=== PATIENT | female | born 1975 | race Caucasian/White ===

== ENCOUNTER → 2016-12-11 | Outpatient (CLI) | payer BC | LOC: MC.RAD 08:00 | DX: Z12.31 Encounter for screening mammogram for malignant neoplasm of breast (principal); N63.10 Unspecified lump in the right breast, unspecified quadrant ==

== ENCOUNTER → 2016-12-14 | Outpatient (CLI) | payer BC | LOC: MC.RAD 07:58 | DX: Z12.31 Encounter for screening mammogram for malignant neoplasm of breast (principal); N63.10 Unspecified lump in the right breast, unspecified quadrant ==

== ENCOUNTER → 2017-04-11 | Outpatient (CLI) | payer BC | LOC: MC.RAD 11:00 | DX: N63.10 Unspecified lump in the right breast, unspecified quadrant (principal) ==

== ENCOUNTER → 2017-07-03 | Outpatient (CLI) | payer BC ==
[~2017-07-03] VITALS: Ht 174 cm; Wt 150.6 kg
[~2017-07-03] MED LIST: ADVIL200 MG PO; KRILL OIL 3001 EACH PO; PHENTERMINE15 MG PO; PROBIOTIC-MAJOR PO; SYNTHROID0.05 MG/TA PO
[2017-07-03 08:21] VITALS: BP 132/80; PULSE 64
== END ==
LOC: LIGHT 08:02
DX: E03.9 Hypothyroidism, unspecified (principal); N39.3 Stress incontinence (female) (male); E88.81 Metabolic syndrome and other insulin resistance; E66.01 Morbid (severe) obesity due to excess calories; Z68.42 Body mass index [BMI] 45.0-49.9, adult; Z71.3 Dietary counseling and surveillance
CPT/HCPCS: G0463

== ENCOUNTER → 2017-07-04 | Outpatient (CLI) | payer BC ==
[~2017-07-04] VITALS: Ht 174 cm; Wt 149.2 kg
[2017-07-08 12:00] VITALS: BP 150/80; PULSE 72
== END ==
LOC: LIGHT 10:40
DX: E03.9 Hypothyroidism, unspecified (principal); N39.3 Stress incontinence (female) (male); E88.81 Metabolic syndrome and other insulin resistance; E66.01 Morbid (severe) obesity due to excess calories; Z71.3 Dietary counseling and surveillance
CPT/HCPCS: G0463

== ENCOUNTER → 2017-07-16 | Outpatient (CLI) | payer BC ==
[~2017-07-16] VITALS: Ht 174 cm; Wt 145.8 kg
[~2017-07-16] MED LIST changes: +EFFEXOR 3737.5 MG/TA PO
[2017-07-22 09:22] VITALS: BP 132/82; PULSE 68
== END ==
LOC: LIGHT 14:11
DX: Z01.89 Encounter for other specified special examinations (principal)

== ENCOUNTER → 2017-07-25 | Outpatient (CLI) | payer BC | LOC: LIGHT 15:03 | DX: Z01.818 Encounter for other preprocedural examination (principal) ==

== ENCOUNTER → 2017-12-12 | Outpatient (CLI) | payer BC ==
[2017-12-09 11:01] VITALS: BP 140/80; PULSE 72
[~2017-12-12] VITALS: Ht 174 cm; Wt 125.9 kg
== END ==
LOC: LIGHT 12:58
DX: E03.9 Hypothyroidism, unspecified (principal); E88.81 Metabolic syndrome and other insulin resistance; N39.3 Stress incontinence (female) (male); E66.01 Morbid (severe) obesity due to excess calories; Z68.41 Body mass index [BMI] 40.0-44.9, adult; Z71.3 Dietary counseling and surveillance
CPT/HCPCS: G0463

== ENCOUNTER → 2018-01-16 | Outpatient (CLI) | payer BC ==
[~2018-01-16] VITALS: Ht 174 cm; Wt 125.2 kg
[~2018-01-16] MED LIST changes: +FASTIN30 MG PO; -PHENTERMINE15 MG PO
[2018-01-16 09:06] VITALS: BP 122/76; PULSE 80
== END ==
LOC: LIGHT 08:54
DX: E03.9 Hypothyroidism, unspecified (principal); E88.81 Metabolic syndrome and other insulin resistance; E66.01 Morbid (severe) obesity due to excess calories; Z68.41 Body mass index [BMI] 40.0-44.9, adult; Z71.3 Dietary counseling and surveillance
CPT/HCPCS: G0463

== ENCOUNTER → 2018-02-13 | Outpatient (CLI) | payer BC ==
[~2018-02-13] VITALS: Ht 174 cm; Wt 117.5 kg
[2018-02-13 10:15] VITALS: BP 136/70; PULSE 80
== END ==
LOC: LIGHT 10:03
DX: E03.9 Hypothyroidism, unspecified (principal); E88.81 Metabolic syndrome and other insulin resistance; E66.01 Morbid (severe) obesity due to excess calories; Z68.38 Body mass index [BMI] 38.0-38.9, adult; Z71.3 Dietary counseling and surveillance
CPT/HCPCS: G0463

== ENCOUNTER → 2018-05-08 | Outpatient (CLI) | payer BC ==
[~2018-05-08] VITALS: Ht 174 cm; Wt 124.5 kg
[2018-05-08 10:01] VITALS: BP 136/86; PULSE 72
== END ==
LOC: LIGHT 03-27 14:33
DX: E78.00 Pure hypercholesterolemia, unspecified (principal); E88.81 Metabolic syndrome and other insulin resistance; E66.01 Morbid (severe) obesity due to excess calories; Z68.41 Body mass index [BMI] 40.0-44.9, adult; Z71.3 Dietary counseling and surveillance
CPT/HCPCS: G0463

== ENCOUNTER → 2018-06-05 | Outpatient (CLI) | payer BC ==
[~2018-06-05] VITALS: Ht 174 cm; Wt 127.2 kg
[2018-06-05 10:27] VITALS: BP 150/100; PULSE 76
[2018-06-09 14:54] VITALS: BP 140/88; PULSE 80
== END ==
LOC: LIGHT 10:22
DX: E03.9 Hypothyroidism, unspecified (principal); E88.81 Metabolic syndrome and other insulin resistance; E66.01 Morbid (severe) obesity due to excess calories; Z68.41 Body mass index [BMI] 40.0-44.9, adult; Z71.3 Dietary counseling and surveillance
CPT/HCPCS: G0463

== ENCOUNTER 2018-07-08 16:34 | Emergency (ER) | payer BC ==
[~2018-07-08] VITALS: Ht 172.7 cm; Wt 126.8 kg
[2018-07-08 16:54] VITALS: BP 173/96
[2018-07-08] MEDS ORDERED: FLEXERIL 1010 MG/TAB PO (17:25)
[2018-07-08 18:03] LABS: BASO % 0.2 % (0.0-2.0); EOS % 0.2 % (0-4.0); GRAN # 4.3 (1.4-6.5); GRAN % 66.1 % (42.2-75.2); HEMATOCRIT 40.2 % (37.0-47.0); HEMOGLOBIN 13.2 g/dl (12.5-16.0); LYMPH # 1.6 (1.2-3.4); LYMPH % 24.7 % (20.0-51.0); MEAN CELL VOLUME 96 fl (80.0-100.0); MEAN CORPUSCULAR HEMOGLOBIN 32 pg (27.0-31.0); MEAN CORPUSCULAR HGB CONC 33 g/dl (33.0-37.0); MEAN PLATELET VOLUME 8.9 fl (7.4-10.4); MONO # 0.5 (0.1-0.6); PLATELET COUNT 181 K/mm3 (130-400); RED BLOOD COUNT 4.18 M/mm3 (4.10-5.30)
[2018-07-08 18:14] LABS: ALBUMIN 4.4 gm/dL (3.5-5.0); BILIRUBIN,TOTAL 0.7 mg/dL (0.0-1.0); C-REACTIVE PROTEIN 0.8 mg/dL (0.0-0.9); CREATININE, serum 0.65 (0.52-1.25); POTASSIUM 3.9 mmol/L (3.4-5.0); TOTAL PROTEIN 7.3 gm/dL (6.4-8.2)
[2018-07-08 18:41] LABS: TSH w REFLEX 3.82 uIU/mL (0.465-4.680)
[2018-07-08] MEDS ORDERED: FIORINAL 325 MG1 CAP PO (20:23)
[2018-07-08 20:40] VITALS: PULSE 71
== END 2018-07-08 20:42 | disposition home or self-care (01) ==
LOC: COL.ER 16:34
PROVIDERS: Physician Assistant
DX: G43.909 Migraine, unspecified, not intractable, without status migrainosus (principal); I10 Essential (primary) hypertension
CPT/HCPCS: J1200; J1885; J2270; J2550; J7030

== ENCOUNTER → 2018-07-18 | Outpatient (CLI) | payer BC ==
[~2018-07-18] MED LIST changes: +FIORINAL 325 MG1 CAP PO; +FLEXERIL 1010 MG/TAB PO
== END ==
LOC: MC.RAD 13:00
DX: N63.10 Unspecified lump in the right breast, unspecified quadrant (principal)
CPT/HCPCS: G0279

== ENCOUNTER → 2018-07-24 | Outpatient (CLI) | payer BC ==
[~2018-07-24] VITALS: Ht 172.7 cm; Wt 133.6 kg
[~2018-07-24] MED LIST changes: +PROMETHAZINE12.5 M5 PO
[2018-07-24 09:48] VITALS: BP 140/72; PULSE 80
== END ==
LOC: LIGHT 09:41
DX: E03.9 Hypothyroidism, unspecified (principal); E88.81 Metabolic syndrome and other insulin resistance; E66.01 Morbid (severe) obesity due to excess calories; Z68.41 Body mass index [BMI] 40.0-44.9, adult; Z71.3 Dietary counseling and surveillance
CPT/HCPCS: G0463

== ENCOUNTER → 2019-09-10 | Outpatient (CLI) | payer BC ==
[~2019-09-10] VITALS: Ht 172.7 cm; Wt 144.7 kg
[~2019-09-10] MED LIST changes: -EFFEXOR 3737.5 MG/TA PO; +EFFEXOR 75M75 MG/TAB PO; +PHENTERMINE15 MG PO; +VYVANSE30 MG PO
[2019-09-10 15:33] VITALS: BP 146/86; PULSE 60
== END ==
LOC: LIGHT 09-03 16:41
DX: E66.01 Morbid (severe) obesity due to excess calories (principal); Z68.42 Body mass index [BMI] 45.0-49.9, adult; E88.81 Metabolic syndrome and other insulin resistance; E03.9 Hypothyroidism, unspecified
CPT/HCPCS: G0463

== ENCOUNTER → 2019-10-15 | Outpatient (CLI) | payer BC ==
[~2019-10-15] VITALS: Ht 172.7 cm; Wt 143.8 kg
[2019-10-15 15:09] VITALS: BP 144/80; PULSE 77
== END ==
LOC: LIGHT 11:26
DX: E66.01 Morbid (severe) obesity due to excess calories (principal); Z68.42 Body mass index [BMI] 45.0-49.9, adult; E03.9 Hypothyroidism, unspecified; E88.81 Metabolic syndrome and other insulin resistance
CPT/HCPCS: G0463

== ENCOUNTER → 2019-11-03 | Outpatient (CLI) | payer BC | LOC: COL.RAD | DX: C43.9 Malignant melanoma of skin, unspecified (principal) ==

== ENCOUNTER → 2020-01-07 | Outpatient (CLI) | payer BC ==
[~2020-01-07] VITALS: Ht 172.7 cm; Wt 143.6 kg
[2020-01-07 09:37] VITALS: BP 156/86; PULSE 56
== END ==
LOC: LIGHT 12-10 15:45
DX: E66.01 Morbid (severe) obesity due to excess calories (principal); Z68.42 Body mass index [BMI] 45.0-49.9, adult; E88.81 Metabolic syndrome and other insulin resistance; E03.9 Hypothyroidism, unspecified
CPT/HCPCS: G0463

== ENCOUNTER 2020-01-08 22:13 | Emergency (ER) | payer BC ==
[~2020-01-08] VITALS: Ht 172.7 cm; Wt 142.3 kg
[2020-01-08 22:24] VITALS: TEMP 97.5
[2020-01-08 23:15] LABS: BASO % 0.2 % (0.0-2.0); GRAN % 63.1 % (42.2-75.2); HEMOGLOBIN 11.9 g/dl (12.5-16.0); LYMPH # 1.7 (1.2-3.4); LYMPH % 27.2 % (20.0-51.0); MEAN CELL VOLUME 88 fl (80.0-100.0); MEAN CORPUSCULAR HEMOGLOBIN 29 pg (27.0-31.0); MEAN CORPUSCULAR HGB CONC 33 g/dl (33.0-37.0); MEAN PLATELET VOLUME 9.2 fl (7.4-10.4); MONO # 0.6 (0.1-0.6); MONO % 8.9 % (1.7-9.3); PLATELET COUNT 213 K/mm3 (130-400); RED BLOOD COUNT 4.17 M/mm3 (4.10-5.30); REDCELL DISTRIBUTION WIDTH-CV 14.7 % (11.5-14.5)
[2020-01-08 23:16] LABS: HEMATOCRIT 36.6 % (37.0-47.0)
[2020-01-08 23:39] LABS: ALBUMIN 4.6 gm/dL (3.5-5.0); BILIRUBIN,TOTAL 0.3 mg/dL (0.0-1.0); CALCIUM 9.3 mg/dL (8.4-10.2); CREATININE, serum 0.75 (0.52-1.25); POTASSIUM 4.2 mmol/L (3.4-5.0); TOTAL PROTEIN 7.3 gm/dL (6.4-8.2)
[2020-01-09 00:28] VITALS: BP 183/91; PULSE 70
== END 2020-01-09 00:29 | disposition home or self-care (01) ==
LOC: COL.ER 22:13
PROVIDERS: Physician Assistant
DX: G43.909 Migraine, unspecified, not intractable, without status migrainosus (principal); I10 Essential (primary) hypertension; F32.9 Major depressive disorder, single episode, unspecified; E06.3 Autoimmune thyroiditis; Z82.0 Family history of epilepsy and other diseases of the nervous system; Z79.82 Long term (current) use of aspirin
CPT/HCPCS: J1200; J1885; J2550; J7030

== ENCOUNTER → 2020-01-11 | Outpatient (CLI) | payer BC | LOC: BHSO 09:03 | DX: F50.81 Binge eating disorder (principal) ==